=== PATIENT | male | born 1945 | race Caucasian/White ===

== ENCOUNTER → 2023-09-24 13:54 | Outpatient (CLI) | payer MEDICARE, SELFPAY ==
--- NOTE | 2023-09-24 13:58 | DI.RAD.S_ITS ---
PROCEDURE: FL BARIUM SWALLOW INDICATIONS: repeated choking episodes COMPARISON: None. FINDINGS: Exam was customized to the patient's ability and equipment's capabilities. Modified barium swallow. Thin, thick, and putting barium utilized. There is mild vallecular and piriform sinus pooling. There is mild residue in the oral pharynx and hypopharynx. No the laryngotracheal penetration or kyree aspiration. Patient experienced 1 episode of very brief coughing during the exam. No cricopharyngeal bar or diverticulum demonstrated. Barium swallow from the sagittal view. Overall esophageal peristalsis is normal. No tertiary contractions demonstrated. There is scant intra esophageal reflux. There is normal transit of a calibrated barium tablet through the esophagus into the stomach. Barium moves through the stomach and into the duodenum. No stricture or diverticulum demonstrated. No hiatal hernia demonstrated. IMPRESSION: 1. No aspiration. 2. Mild vallecular and piriform sinus pooling. Mild oral pharynx and hypopharynx residue. 3. No stricture or diverticulum identified. 4. Minimal esophageal dysmotility demonstrable by intra esophageal reflux. Formal speech pathology evaluation should be considered. Endoscopic evaluation could also be considered. Dictated by: Miguel Ventura M.D. on 09/25/2023 at 9:10 Approved by: Miguel Ventura M.D. on 09/25/2023 at 9:20
== END ==
LOC: RAD 13:57
PROVIDERS: PCP Student in an Organized Health Care Education/Training Program; Referring Provider Student in an Organized Health Care Education/Training Program; Visit Provider Student in an Organized Health Care Education/Training Program
DX: R09.89 Other specified symptoms and signs involving the circulatory and respiratory systems (principal)
CPT/HCPCS: 74220